=== PATIENT | female | born 1945 | race Caucasian/White ===

== ENCOUNTER 2019-10-16 08:50 | Emergency (ER) | payer OTHER, MEDICARE ==
[2019-10-16 09:11] VITALS: BP 168/89
--- NOTE | 2019-10-16 09:30 | UC ---
Abdominal Pain Female HPI - HPI Summary HPI Summary: 74-year-old female comes in with a chief complaint of left lower quadrant abdominal pain. It was sudden onset last night. The pain at its worse is about a 7 out of 10. Right now at rest it's a 3 out of 10. The pain does get worse with movement but also will increase and decrease on its own. Reports a normal bowel movement this morning. No urinary symptoms. No fevers or chills. No history of abdominal surgeries. She has slightly bloated. No nausea vomiting. - History of Current Complaint Chief Complaint: UCGeneralIllness Stated Complaint: LOWER LEFT ABDOMINAL PAIN Time Seen by Provider: 10/16/19 09:18 Pain Intensity: 3 Allergies/Adverse Reactions: Allergies Allergy/AdvReac Type Severity Reaction Status Date / Time medroxyprogesterone Allergy Intermediate Hives Verified 10/16/19 09:12 [From Provera] Home Medications: Home Medications Atorvastatin* [Lipitor*] 10 mg PO BEDTIME 10/16/19 [History Confirmed 10/16/19] Calcium Carbonate/Vitamin D3 [Calcium 1000 + D] 1 tab PO 10/16/19 [History Confirmed 10/16/19] Losartan Potassium [Cozaar] 10/16/19 [History] Minocycline HCl [Minocycline HCl ER] 65 mg PO 10/16/19 [History] Triamterene/HCTZ 37.5-25 MG* [Dyazide CAP*] 1 cap PO DAILY 10/16/19 [History Confirmed 10/16/19] PMH/Surg Hx/FS Hx/Imm Hx Previously Healthy: Yes Endocrine History: Dyslipidemia Cardiovascular History: Hypertension - Surgical History Surgical History: None - Family History Known Family History: Positive: Non-Contributory - Social History Alcohol Use: Daily Substance Use Type: None Smoking Status (MU): Never Smoked Tobacco Review of Systems All Other Systems Reviewed And Are Negative: Yes Constitutional: Positive: Negative Skin: Positive: Negative Eyes: Positive: Blurred Vision ENT: Positive: Negative Respiratory: Positive: Negative Cardiovascular: Positive: Negative Gastrointestinal: Positive: Abdominal Pain Genitourinary: Positive: Negative Motor: Positive: Negative Neurovascular: Positive: Negative Musculoskeletal: Positive: Negative Neurological: Positive: Negative Psychological: Positive: Negative Is Patient Immunocompromised?: No Physical Exam Triage Information Reviewed: Yes Appearance: Well-Appearing, Well-Nourished, Pain Distress - Mild to moderate Vital Signs: Initial Vital Signs Temp 98.9 F 10/16/19 09:06 Pulse 86 10/16/19 09:06 Resp 18 10/16/19 09:06 BP 168/89 10/16/19 09:06 Pulse Ox 100 10/16/19 09:06 Vital Signs Reviewed: Yes Eye Exam: Normal Eyes: Positive: Conjunctiva Clear Neck: Positive: Supple Respiratory: Positive: Lungs clear, Normal breath sounds, No respiratory distress Cardiovascular: Positive: RRR Abdomen Description: Positive: Other: - Tender to palpation left lower quadrant. No right-sided tenderness.. Negative: CVA Tenderness (R), CVA Tenderness (L) Bowel Sounds: Positive: Hypoactive Musculoskeletal: Positive: Strength Intact, ROM Intact Neurological: Positive: Alert, Muscle Tone Normal Psychological: Positive: Normal Response To Family, Age Appropriate Behavior Skin Exam: Normal Abd Pain Female Course/Dx - Course Course Of Treatment: With left lower quadrant abdominal pain and her inability to get timely blood work I recommended further evaluation emergency Department. Patient will go by POV. - Differential Dx/Diagnosis Provider Diagnosis: Left sided abdominal pain Discharge ED - Sign-Out/Discharge Documenting (check all that apply): Patient Departure All imaging exams completed and their final reports reviewed: No Studies - Discharge Plan Condition: Stable Disposition: HOME-RECOMMEND TO ED Patient Education Materials: Acute Abdominal Pain (ED) Referrals: [facility] [Outside] Additional Instructions: GO DIRECTLY TO THE EMERGENCY DEPARTMENT FOR FURTHER EVALUATION AND CARE. - Billing Disposition and Condition Condition: STABLE Disposition: Home-Recommend to ED
== END 2019-10-16 09:42 | disposition home health service (06) ==
LOC: UCCORT 08:50
DX: R10.12 Left upper quadrant pain (principal); I10 Essential (primary) hypertension; E78.5 Hyperlipidemia, unspecified; R14.0 Abdominal distension (gaseous); Z88.8 Allergy status to other drugs, medicaments and biological substances; Z79.899 Other long term (current) drug therapy
CPT/HCPCS: 81003; 99212; G0463